=== PATIENT | male | born 1980 | race Caucasian/White ===

== ENCOUNTER 2017-03-15 22:16 | Emergency (ER) | payer SELFPAY ==
[~2017-03-15] VITALS: Ht 188 cm; Wt 127.0 kg
[2017-03-15 22:16] VITALS: BP 144/78; PULSE 100; RESP 18; TEMP 98.9; O2SAT 99
--- NOTE | 2017-03-15 22:16 | NUR ---
Patient to [facility] for evaluation. Report given to My RN.
--- NOTE | 2017-03-15 22:30 | NUR ---
Pt BIB [employer] [facility] per , at ED for medical clearance.Abrasions noted at right elbow, forearm,and lower leg , no active bleeding. A&Ox4, denies SOB or chestpain, denies N/V/D. Will continue to monitor
--- NOTE | 2017-03-15 22:38 | NUR ---
MD Jefferson at bedside examining pt
[2017-03-15] MEDS ORDERED: DIPH-TET-PERTUS Vaccine 0.5 ML VIAL (ADACEL) I.M. ONE (22:45)
[2017-03-15 23:20] VITALS: BP 140/76; PULSE 92; RESP 19; TEMP 98.9; O2SAT 98
--- NOTE | 2017-03-15 23:20 | NUR ---
Patient given written and verbal discharge instructions and verbalizes understanding. ER MD Mahmood discussed with patient the results and treatment provided. Patient in stable condition. ID arm band removed. No Rx given. Patient educated on pain management and to follow up with PMD. Pain Scale 0/10 Opportunity for questions provided and answered.
== END 2017-03-15 23:20 ==
LOC: SED 22:16
DX: S50.311A Abrasion of right elbow, initial encounter (principal); E11.9 Type 2 diabetes mellitus without complications; X58.XXXA Exposure to other specified factors, initial encounter; Y93.89 Activity, other specified; Y99.8 Other external cause status; Y92.89 Other specified places as the place of occurrence of the external cause
CPT/HCPCS: 90715; 99283